=== PATIENT | female | born 1965 | race Caucasian/White ===

== ENCOUNTER → 2023-10-23 14:10 | Outpatient (REF) | payer OTHER, SELFPAY | LOC: WDC 14:10 | PROVIDERS: ATTENDING PHYSICIAN Nurse Practitioner Family | DX: Z12.31 Encounter for screening mammogram for malignant neoplasm of breast (principal) | CPT/HCPCS: 77063; 77067 ==

== ENCOUNTER → 2025-01-13 14:52 | Outpatient (REF) | payer OTHER, SELFPAY | LOC: WDC 14:52 | PROVIDERS: ATTENDING PHYSICIAN Nurse Practitioner Family | DX: Z12.31 Encounter for screening mammogram for malignant neoplasm of breast (principal) | CPT/HCPCS: 77063; 77067 ==